=== PATIENT | female | born 1970 | race Caucasian/White ===

== ENCOUNTER 2024-03-13 09:57 | Outpatient (AMB) | payer OTHER, SELFPAY ==
--- NOTE | 2024-03-13 10:07 | MHC.PC.OV ---
Vital Signs 03/13/24 10:09 Height 5 ft 5 in Weight 200 lb 6 oz BMI 33.3 BP 106/78 Blood Pressure Location Rt brachial Position Sitting Pulse 67 Pulse Source Pulse Oximeter Pulse Oximetry (%) 99 Oxygen Delivery Method Room Air Intake Visit Reasons: yael from [facility] Intake Note: New patient visit Rig Welder Required: No Allergies No Known Allergies Allergy (Verified 03/13/24 10:12) Tobacco use date assessed: 03/13/24 Dental Screening Dental Screen Date: 03/13/24 Did you have a dental visit in the last 12 months?: Yes Did you have a dental problem in the last 6 months where you did not have access to dental care?: No Was dental information given to patient?: Patient has dentist HPI HPI Comments History of Present Illness Details This is a 54-year-old female with a past medical history of obesity, hyperlipidemia and urinary frequency presenting to establish care. She transferred from my panel at [facility]. Obesity-she is extremely frustrated. She feels uncomfortable in her own skin. She is always thinking about when her next meal is going to be. She tried implementing a portion controlled diet, low-carbohydrate diet, exercise routine within the past 12 months. She has not lost weight successfully. Her BMI is 33.3. She took Topamax for a time. She lost 15 lb, but she gained it back. She has a history of hyperlipidemia and a family history of cardiovascular disease. Patient tells me she was at a concert 4-6 weeks ago standing when she felt a sudden intense tightness across the left side of her chest. It remained constant so she left the consult. The tightness resolved without intervention after 45 minutes. Patient recalls it was a very crowded area, and she can get claustrophobic so she isn't sure if it was anxiety, but this has never happened to her before. She had no nausea, vomiting, radiation of pain, dizziness or difficulty breathing associated with symptoms. No diaphoresis. Her paternal grandmother at age 43 of cardiovascular disease. Her father has a stent and arrhythmia. Her paternal grandfather also had cardiovascular disease. She had a stress test 5 years ago that was reportedly normal. She denies exertional chest discomfort or tightness and shortness of breath. She is a nonsmoker. She drinks alcohol socially. She was seen by Urogynecology for overactive bladder. She was prescribed Myrbetriq, but she did not take it. Denies incontinence. She has plantar fasciitis in both of her feet that recurred over the summer after she wore sandals. She is using inserts in her sneakers. She still has pain when she gets up in the morning, but after she walks around this resolves. No numbness or tingling in her feet. ROS: Constitutional: No unexplained weight loss, fever, chills or night sweats. Eyes: No vision changes Respiratory: No shortness of breath, cough or sputum production. Cardiovascular: No palpitations or pedal edema. See HPI. Gastrointestinal: No anorexia, nausea, vomiting or diarrhea. No abdominal pain or blood in stool. Neurologic: No headache, dizziness, syncope, numbness, tingling or weakness. Skin: No rash Endocrine: No cold or heat intolerance. No polyuria or polydipsia. Psychiatric: No depression or SI/HI. Physical exam: Constitutional: Alert, in no distress. Head: Normocephalic. Neck: Supple, Full range of motion. No lymphadenopathy. No palpable thyroid masses. Respiratory: Clear to auscultation. Cardiovascular: S1 S2 regular. No murmur. Gastrointestinal: Abdomen soft, non-tender, non-distended. Normal bowel sounds. No palpable masses. Extremities: Warm and well perfused. No clubbing, cyanosis or edema. Psychiatric: Normal mood and affect [facility] Medical History (Updated 03/13/24 @ 11:20 by VERÓNICA Weller) Obesity, class 1 Urinary frequency Bilateral plantar fasciitis Obesity, class 2 Hyperlipidemia Chest tightness Social History Housing: House Patient Tobacco Use Status: Never used Tobacco e-Cigarette/Vaping Use: Never Used Second Hand Smoke Exposure: No service: No Current occupational status: employed Current occupation: Realtor Current occupational exposures/hazards: No Cognitive needs: No Hearing needs: No Vision needs: No Questionnaire PHQ-9 Over the last 2 weeks, how often have you been bothered by any of the following problems? 1. Little interest or pleasure in doing things: not at all 2. Feeling down, depressed, or hopeless: not at all 3. Trouble falling or staying asleep, or sleeping too much: several days 4. Feeling tired or having little energy: not at all 5. Poor appetite or overeating: nearly every day 6. Feeling bad about yourself - or that you are a failure or have let yourself or your family down: not at all 7. Trouble concentrating on things, such as reading the newspaper or watching television: not at all 8. Moving or speaking so slowly that other people could have noticed. Or the opposite - being so fidgety or restless that you have been moving around a lot more than usual: not at all 9. Thoughts that you would be better off or of hurting yourself in some way: not at all Total score: 4 Depression Screening Interpretation: Positive Depression Screening Done: Yes Source: Developed by Drs. Jeremi Buenrostro, Cat Benson, Isma Ballard and colleagues, with an educational ted from [employer]. Thrive Questionnaire I am a: Patient What is your living situation today?: I have a steady place to live Within the past 12 months, did the food you bought not last and you didn't have the money to get more?: Never true Within the past 12 months, did you worry whether your food would run out before you got money to buy more?: Never true Do you have trouble paying for medicines?: No Do you have trouble getting transportation to medical appointments?: No Do you have trouble paying your heating and electricity bill?: No Do you have trouble taking care of your child, family member or friend?: No Do you have trouble with day-to-day activities such as bathing, preparing meals, shopping, managing finances, etc.?: No Are you currently unemployed and looking for a job?: No Are you interested in more education?: I choose not to answer this question Please select the resources that you would like help with: None Currently or been in a relationship where the following occur: No concerns reported THRIVE Score: 0 AUDIT C Alcohol Use Questionnaire (AUDIT-C) 1. How often do you have a drink containing alcohol?: 2-3 times a week 2. How many drinks containing alcohol do you have on a typical day when you are drinking?: 1 or 2 3. How often do you have six or more drinks on one occasion?: Never Total Score: 3 NASH-7 AMB Questionnaire NASH-7 Feeling nervous, anxious, or on edge: 0 = Not at all Not being able to stop or control worryin = Not at all Worrying too much about different things: 0 = Not at all Trouble relaxin = Not at all Being so restless that it is hard to sit still: 0 = Not at all Becoming easily annoyed or irritable: 1 = Several days Feeling afraid as if something awful might happen: 0 = Not at all Total NASH-7 score (0-4 normal; 5-9 mild; 10-14 moderate; 15-21 severe): 1 Source: Developed by Drs. Jeremi Buenrostro, Cat Benson, Isma Ballard and colleagues, with an educational ted from [employer]. Physical exam (Primary Care) Vital Signs: Last Vital Signs Pulse 67 03/13/24 10:09 BP 106/78 03/13/24 10:09 Pulse Ox 99 03/13/24 10:09 Oxygen Delivery Method Room Air 03/13/24 10:09 BMI result Body Mass Index 33.3 Tobacco/Smoking Status: Tobacco use Status Tobacco use date assessed 03/13/24 03/13/24 10:12 Patient Tobacco Use Status Never used Tobacco 03/13/24 10:12 e-Cigarette/Vaping Use Never Used 03/13/24 10:12 PHQ-9: PHQ-9 Score PHQ-9: Total score 4 03/13/24 10:57 Depression Screening Interpretation: Positive Currently or been in a relationship where the following occur: No concerns reported Office Procedures EKG Details: EKG shows normal sinus rhythm and ventricular rate 61 beats per minute. Reviewed by Dr. Hilton. [id number], Complete Coding Level of Care Code Est Pt Level 5 (48396) Complex EM visit Add On G2211 Diagnoses Chest tightness R07.89 Hyperlipidemia E78.5 Bilateral plantar fasciitis M72.2 Obesity, class 1 E66.811 CPT Codes EKG - CPT: [id number]-[id number], Complete ([id number]) Time Spent (min) 58 Comment Direct patient care and completing documentation Assessment & Plan Assessment & Plan (1) Chest tightness: Code(s): R07.89 - Other chest pain Category: Medical Plan: Differential includes CAD, anxiety, GERD, musculoskeletal pain. EKG today nonischemic. Patient describes atypical episode of chest tightness but given risk factors (family history, hyperlipidemia, obesity) we will proceed with echocardiogram and nuclear stress test. Advised patient to call 911 and go to ER if tightness returns. Reviewed signs and symptoms warranting ER evaluation. Check fasting labs. (2) Hyperlipidemia: Code(s): E78.5 - Hyperlipidemia, unspecified Category: Medical Plan: Check fasting lipid profile. (3) Bilateral plantar fasciitis: Code(s): M72.2 - Plantar fascial fibromatosis Category: Medical Plan: Supportive exercises and care reviewed for home. Symptoms have been improving. She will call if they worsen. (4) Obesity, class 1: Code(s): E66.811 - Obesity, class 1 Category: Medical Plan: Check fasting labs and TSH. Continue lifestyle modifications though she has been unable to lose weight successfully. She has tried Topamax. I will see if insurance will cover GLP 1. She denies contraindications to this medication. Titration and side effects were reviewed in detail with her. Referred to weight loss management in the event that it is not covered through primary care since [facility] usually dictates it must come from endocrinology or weight loss case management specialist. Plan Follow up in 8 weeks. Orders: Orders AMB EKG-In Office Today R07.89 - Other chest pain Comprehensive Met. Panel Today E66.812 - Obesity, class 2, E78.5 - Hyperlipidemia, unspecified, M72.2 - Plantar fascial fibromatosis, R07.89 - Other chest pain, R35.0 - Frequency of micturition Lipid Panel Today E66.812 - Obesity, class 2, E78.5 - Hyperlipidemia, unspecified, M72.2 - Plantar fascial fibromatosis, R07.89 - Other chest pain, R35.0 - Frequency of micturition TSH reflex Free T4 Today E66.812 - Obesity, class 2, E78.5 - Hyperlipidemia, unspecified, M72.2 - Plantar fascial fibromatosis, R07.89 - Other chest pain, R35.0 - Frequency of micturition CA echo transthoracic complete Today R07.89 - Other chest pain Complete Blood Count no Diff Today E66.812 - Obesity, class 2, E78.5 - Hyperlipidemia, unspecified, M72.2 - Plantar fascial fibromatosis, R07.89 - Other chest pain, R35.0 - Frequency of micturition Hemoglobin A1c Today E66.812 - Obesity, class 2, E78.5 - Hyperlipidemia, unspecified, M72.2 - Plantar fascial fibromatosis, R07.89 - Other chest pain, R35.0 - Frequency of micturition B Type Natriuretic Peptide Today E11.9 - Type 2 diabetes mellitus without complications, E66.812 - Obesity, class 2, E78.5 - Hyperlipidemia, unspecified, M72.2 - Plantar fascial fibromatosis, R07.89 - Other chest pain, R35.0 - Frequency of micturition CA stress test Today R94.31 - Abnormal electrocardiogram [ECG] [EKG] NM cardiolite stress test Today R07.89 - Other chest pain Referrals Medical Weight Management Referral E66.811 - Obesity, class 1 Medications: New semaglutide (weight loss) (Silverio) administer weeks 1 through 4 of therapy 0.25 mg (0.5 mL) subcut QWEEK 2 mL 0RF
[2024-03-13 10:09] VITALS: BP 106/78; PULSE 67; O2SAT 99; BMI 33.3
== END 2024-03-13 11:48 | disposition home or self-care (01) ==
PROVIDERS: PCP Physician Assistant Medical; Visit Provider Physician Assistant Medical
DX: R07.89 Other chest pain (principal); E78.5 Hyperlipidemia, unspecified; E66.811 Obesity, class 1; Z68.33 Body mass index [BMI] 33.0-33.9, adult; M72.2 Plantar fascial fibromatosis

== ENCOUNTER → 2024-03-13 09:57 | Outpatient (BNVA) | payer OTHER, SELFPAY | PROVIDERS: Visit Provider Physician Assistant Medical | DX: R07.89 Other chest pain (principal); E78.5 Hyperlipidemia, unspecified; M72.2 Plantar fascial fibromatosis; E66.811 Obesity, class 1; Z68.33 Body mass index [BMI] 33.0-33.9, adult | CPT/HCPCS: 93005; 96127 ==

== ENCOUNTER 2024-03-20 07:38 | Outpatient (REF) | payer OTHER, SELFPAY ==
[2024-03-20 10:33] LABS: Hematocrit 43.4 % (37.0-47.0); Hemoglobin 14.1 g/dl (12.0-16.0); Mean Corpuscular HGB Conc 32.5 g/dl (31.0-35.0); Mean Corpuscular Hemoglobin 28.7 pg (27.0-33.0); Mean Corpuscular Volume 88.2 fL (80.0-98.0); Mean Platelet Volume 9.4 fL (9.4-12.3); Platelet Count 394 X10*3/uL (160-400); Red Blood Count 4.92 X10*6/uL (4.20-5.50); Red Cell Distribution Width 13.2 % (11.0-16.0); White Blood Count 6.1 X10*3/uL (4.8-10.8)
[2024-03-20 10:50] LABS: Estimated Average Glucose 111 mg/dL; Hemoglobin A1C 131.8424 umol/L; Hemoglobin A1c % 5.5 % (<6.0); Total Hemoglobin (HGBA1C) 3555.9381 umol/L
[2024-03-20 10:52] LABS: B Type Natriuretic Peptide 15 pg/mL (<100)
[2024-03-20 11:26] LABS: Anion Gap 9 (12-20)
[2024-03-20 11:31] LABS: Alanine Aminotransferase 21 U/L (0-31); Alkaline Phosphatase 81 U/L (39-117); Aspartate Amino Transferase 25 U/L (5-31); Bilirubin Total 0.5 mg/dL (0.0-1.0); Blood Urea Nitrogen 11 mg/dL (9-16); Calcium 9.1 mg/dL (8.4-10.2); Carbon Dioxide 29 mmol/L (22-29); Chloride 104 mmol/L (96-108); Cholesterol 238 mg/dL (<200); Estimated Glomerular Filt Rate > 60; Glucose Random 92 mg/dL (60-115); HDL Cholesterol 66 mg/dL (>40); LDL Cholesterol Calculated 152 mg/dL (<100); Potassium 4.3 mmol/L (3.3-5.1); Sodium 138 mmol/L (135-145); Total Protein 6.9 g/dL (6.5-8.0); Triglycerides 100 mg/dL (<150)
== END 2024-03-20 07:39 | disposition home or self-care (01) ==
LOC: HO.HMGCLDS 07:38
PROVIDERS: PCP Physician Assistant Medical; Visit Provider Physician Assistant Medical
DX: E78.5 Hyperlipidemia, unspecified (principal)
CPT/HCPCS: 36415; 80053; 80061; 83036; 83880; 84443; 85027

== ENCOUNTER → 2024-04-17 07:40 | Outpatient (REF) | payer OTHER, SELFPAY ==
--- NOTE | 2024-04-17 07:43 | CA_ITS ---
Transthoracic Echocardiogram Patient (Last, First, Middle): Maura Rae J Gender: Female Date of : 1970 Age: 54 Procedure Date: 04/17/2024 Procedure Type: Transthoracic Echocardiogram Location: OP Height: 165.1 cm Weight: 90.72 kg BSA: 1.98 m2 Heart Rate: bpm BP: 130 / 86 mmHg Mig Welder: AMRITA Referring MD: Kajal SANCHES Symptoms: R07.89 - Other chest pain Study Quality: Adequate with contrast ECG Rhythm: Sinus Conclusions: - The left ventricular systolic function is normal. The visually estimated ejection fraction is between 55-60%. - No obvious valvular pathology seen on this study. Findings Procedure Information Contrast agent, definity, is being given per protocol without apparent complications. Left Ventricle Normal left ventricular cavity size. There is normal left ventricular wall thickness. The left ventricular systolic function is normal. The visually estimated ejection fraction is between 55-60%. There is no evidence of regional wall motion abnormalities. Diastolic function is normal for age. Right Ventricle Normal right ventricular cavity size. There is low normal right ventricular systolic function. Atria Both atria are normal in size. Aortic Valve There is a normal trileaflet aortic valve. There is no aortic valve stenosis. There is no aortic valve regurgitation. Mitral Valve The mitral valve appears normal. There is trace mitral valve regurgitation. There is no mitral valve stenosis. Pulmonic Valve The pulmonic valve is likely normal. Tricuspid Valve There is trace tricuspid valve regurgitation. Tricuspid regurgitation envelope is inadequate for calculation of right ventricular systolic pressure. Great Vessels The asc aorta is normal in size. Venous The inferior vena cava is normal in size and collapses greater than 50% with inspiration. Pericardium/Pleural There is no evidence of pericardial effusion. Prior Study Comparison No prior study available for comparison. Recommendations, Care & Conclusions No obvious valvular pathology seen on this study. Measurements 2D Linear Measurements IVSd: 0.95 0.6-0.9/0.6-1.0 cm LVIDd: 3.92 3.9-5.3/4.2-5.9 cm LVIDd Index: 1.98 2.4-3.2/2.2-3.1 cm/m2 LVIDs: 2.60 2.0-3.6 cm LVPWd: 0.97 0.7-1.1 cm LA Diam: 2.90 2.7-3.8/3.0-4.0 cm LAIDs Index: 1.46 1.5-2.3 cm/m2 LV Mass: 144.29 67-162/88-224 g LV Mass Index: 72.87 43-95/49-115 g/m2 LVOT Diam: 2.10 3.0+(-)1.3 cm 2D Systolic Function EF 4C: 62.90 >55% EF 2C: 57.50 >55% EF BiP: 59.60 >55% Mitral Valve MV Pk E: 0.68 MV PK A: 0.54 MV Decel Time: 250.00 E/A: 1.30 E'Lateral: 11.20 E'Medial: 8.81 E/E' Med: 7.70 E/E' Lat: 6.00 PHT: 73.00 MVA PHT: 3.01 Decel [place]: 2.71 Aortic Valve AoV Pk Zhen: 1.08 AoV Mn Zhen: 0.78 AoV VTI: 0.27 AoV Pk Grad: 5.00 Aov Mn Grad: 3.00 YAIMA Cont.VTI: 2.43 LVOT LVOT Pk Zhen: 0.88 LVOT Mn Zhen: 0.56 LVOT VTI: 0.19 LVOT Pk Grad: 3.00 LVOT Mn Grad: 1.00 LVOT Diam: 2.10 LVOT Area: 3.46 Diastolic Function MV Pk E: 0.68 MV Pk A: 0.54 E/A: 1.30 E'Medial: 8.81 E/E' Med: 7.70 E' Laterial: 11.20 E/E' Lat: 6.00 Right Ventricle TAPSE (mm): 20.00 TVS' Zhen: 9.79 Tricuspid Valve RA Press: 3.00 Great Vessels Aorta Sinus of Valsalva: 2.73 2.0-3.[address] [place]: 1.93 1.7-3.4 cm Ao Asc: 3.10 2.1-3.4 cm Updated in Other Vendor System with Status of Final [place] MD electronically signed on 04/17/2024 10:43:24 AM with status of Final
== END ==
LOC: HO.CARD 07:40
PROVIDERS: PCP Physician Assistant Medical; Visit Provider Physician Assistant Medical
DX: R07.89 Other chest pain (principal)
CPT/HCPCS: 93306; Q9957

== ENCOUNTER → 2024-04-17 07:43 | Outpatient (BNV) | payer OTHER, SELFPAY | PROVIDERS: PCP Physician Assistant Medical; Visit Provider Internal Medicine | DX: R07.9 Chest pain, unspecified (principal) | CPT/HCPCS: 93306 ==

== ENCOUNTER → 2024-05-09 07:41 | Outpatient (BNVA) | payer OTHER, SELFPAY | PROVIDERS: PCP Physician Assistant Medical; Visit Provider Physician Assistant Surgical ==

== ENCOUNTER 2024-05-22 15:12 | Outpatient (AMB) | payer OTHER, SELFPAY ==
[2024-05-22 15:44] VITALS: BP 124/80; PULSE 76; O2SAT 98; BMI 32.3
--- NOTE | 2024-05-22 15:44 | A.OFFPC_ITS ---
Vital Signs 05/22/24 15:44 Height 5 ft 6 in Weight 200 lb BMI 32.3 BP 124/80 Blood Pressure Location Rt brachial Position Sitting Pulse 76 Pulse Source Pulse Oximeter Pulse Oximetry (%) 98 Oxygen Delivery Method Room Air Intake Visit Reasons: FU MEDS Allergies No Known Allergies Allergy (Verified 05/22/24 15:47) Tobacco use date assessed: 05/22/24 Dental Screening Dental Screen Date: 05/22/24 Did you have a dental visit in the last 12 months?: Yes Did you have a dental problem in the last 6 months where you did not have access to dental care?: No Was dental information given to patient?: Patient has dentist HPI HPI Comments History of Present Illness Details This is a 54-year-old female with a past medical history of obesity and hyperlipidemia presenting for follow up. Obesity-we tried to prescribed GLP 1, but her insurance did not cover it. She saw the weight managed program at [facility], and prior authorization is processing. She has paid out of pocket for the 1st month because she was so frustrated and wanted to start the medication. She is thinking about requesting change to Zepbound on the advice of her friend who is a pharmacist. They also told her about a coupon where she can get this for 400 dollars a month. She feels uncomfortable in her own skin. She is tearful about this. She tried taking Topamax and lost 15 lb but ended up gaining it back. She has a history of hyperlipidemia and a family history of cardiovascular disease. Documented at last visit: Patient tells me she was at a concert 4-6 weeks ago standing when she felt a sudden intense tightness across the left side of her chest. It remained constant so she left the consult. The tightness resolved without intervention after 45 minutes. Patient recalls it was a very crowded area, and she can get claustrophobic so she isn't sure if it was anxiety, but this has never happened to her before. She had no nausea, vomiting, radiation of pain, dizziness or difficulty breathing associated with symptoms. No diaphoresis. Her paternal grandmother at age 43 of cardiovascular disease. Her father has a stent and arrhythmia. Her paternal grandfather also had cardiovascular disease. She had a stress test 5 years ago that was reportedly normal. She denies exertional chest discomfort or tightness and shortness of breath. She is a nonsmoker. She drinks alcohol socially. Her EKG was nonischemic. She had an echocardiogram on 04/18/2023 which showed no clinically significant valve disease or evidence of structural heart disease. Ejection fraction was normal. She has a nuclear stress test scheduled in June. She has not had any further episodes of chest discomfort. CBC, BNP, TSH, hemoglobin A1c, CMP were normal. In 03/01/2024 she found a tick on her upper back that was engorged. Her partner removed it, and said it was not a deer tick. Patient has no joint swelling, increased fatigue, fevers, chills or night sweats. She wants to be tested for Lyme disease to be cautious. ROS: Constitutional: No unexplained weight loss, fever, chills or night sweats. Eyes: No vision changes Respiratory: No shortness of breath, cough or sputum production. Cardiovascular: No chest pain, palpitations or pedal edema. Gastrointestinal: No anorexia, nausea, vomiting or diarrhea. No abdominal pain or blood in stool. Neurologic: No headache, dizziness, syncope, numbness, tingling or weakness. Skin: No rash Endocrine: No cold or heat intolerance. No polyuria or polydipsia. Psychiatric: Denies depression and SI/HI. Endorses emotional distress about being overweight. Physical exam: Constitutional: Alert, in no distress. Head: Normocephalic. Neck: Supple, Full range of motion. No lymphadenopathy. No palpable thyroid masses. Respiratory: Clear to auscultation. Cardiovascular: S1 S2 regular. No murmur. Gastrointestinal: Abdomen soft, non-tender, non-distended. Normal bowel sounds. No palpable masses. Extremities: Warm and well perfused. No clubbing, cyanosis or edema. Psychiatric: Cooperative, tearful and distressed at times speaking about her weight [facility] Medical History Hypertension Obesity, class 1 Urinary frequency Bilateral plantar fasciitis Obesity, class 2 Hyperlipidemia Chest tightness Surgical History H/O wisdom tooth extraction Family History Mother Family history of CLL (chronic lymphoid leukemia) Social History Housing: House Alcohol intake: current Comment: socially Patient Tobacco Use Status: Never used Tobacco e-Cigarette/Vaping Use: Never Used Second Hand Smoke Exposure: No service: No Current occupational status: employed Current occupation: Realtor Current occupational exposures/hazards: No Cognitive needs: No Hearing needs: No Vision needs: No Questionnaire PHQ-9 Over the last 2 weeks, how often have you been bothered by any of the following problems? 1. Little interest or pleasure in doing things: not at all 2. Feeling down, depressed, or hopeless: not at all 3. Trouble falling or staying asleep, or sleeping too much: not at all 4. Feeling tired or having little energy: not at all 5. Poor appetite or overeating: several days 6. Feeling bad about yourself - or that you are a failure or have let yourself or your family down: not at all 7. Trouble concentrating on things, such as reading the newspaper or watching television: not at all 8. Moving or speaking so slowly that other people could have noticed. Or the opposite - being so fidgety or restless that you have been moving around a lot m ore than usual: not at all 9. Thoughts that you would be better off or of hurting yourself in some way: not at all Total score: 1 Source: Developed by Drs. Jeremi Buenrostro, Cat Benson, Isma Ballard and colleagues, with an educational ted from [employer]. Thrive Questionnaire Date Thrive assessed: 05/11/24 Within the past 12 months, did the food you bought not last and you didn't have the money to get more?: Never true Within the past 12 months, did you worry whether your food would run out before you got money to buy more?: Never true Do you have trouble paying for medicines?: No Do you have trouble getting transportation to medical appointments?: No Do you have trouble paying your heating and electricity bill?: No Do you have trouble taking care of your child, family member or friend?: No Do you have trouble with day-to-day activities such as bathing, preparing meals, shopping, managing finances, etc.?: No Are you currently unemployed and looking for a job?: No Are you interested in more education?: No Please select the resources that you would like help with: None Currently or been in a relationship where the following occur: No concerns reported THRIVE Score: 0 NASH-7 AMB Questionnaire NASH-7 Feeling nervous, anxious, or on edge: 1 = Several days Not being able to stop or control worryin = Several days Becoming easily annoyed or irritable: 1 = Several days Source: Developed by Drs. Jeremi Buenrostro, Cat Benson, Isma Ballard and colleagues, with an educational ted from [employer]. Physical exam (Primary Care) Vital Signs: Last Vital Signs Pulse 76 05/22/24 15:44 BP 124/80 05/22/24 15:44 Pulse Ox 98 05/22/24 15:44 Oxygen Delivery Method Room Air 05/22/24 15:44 BMI result Body Mass Index 32.3 Tobacco/Smoking Status: Tobacco use Status Tobacco use date assessed 05/22/24 05/22/24 15:48 Patient Tobacco Use Status Never used Tobacco 05/22/24 15:48 e-Cigarette/Vaping Use Never Used 05/22/24 15:48 PHQ-9: PHQ-9 Score PHQ-9: Total score 1 05/22/24 16:08 Thrive Assessment: Date of Thrive Assessment Date Thrive assessed 05/11/24 05/22/24 15:48 Currently or been in a relationship where the following occur: No concerns reported Coding Level of Care Code Est Pt Level 4 (53748) Complex EM visit Add On G2211 Diagnoses Chest tightness R07.89 Obesity, class 2 E66.812 Tick bite W57.XXXA Assessment & Plan Assessment & Plan (1) Chest tightness: Code(s): R07.89 - Other chest pain Category: Medical Plan: She had 1 episode and no recurrent symptoms. Differential includes CAD, anxiety, GERD, musculoskeletal pain. EKG and echocardiogram and labs reassuring. Proceed with nuclear stress test out of an abundance of caution. Warning signs warranting ER evaluation reviewed. (2) Obesity, class 2: Code(s): E66.812 - Obesity, class 2 Category: Medical Plan: Continue lifestyle modifications. She started Wegovy. Follow up with weight management regarding question about Zepbound. Patient is emotionally distressed by her weight, and we spoke about this in depth today. I recommended counseling. She will consider this and let me know if she wants to proceed. (3) Tick bite: Code(s): W57.XXXA - Bitten or stung by nonvenomous insect and other nonvenomous arthropods, initial encounter Plan: We will check Lyme serology out of an abundance of caution. Plan Follow up in 2 months. Orders: Orders Lyme IgG/IgM w/reflex to WB 05/22/24 W57.XXXA - Bitten or stung by nonvenomous insect and other nonvenomous arthropods, initial encounter
== END 2024-05-22 16:20 | disposition home or self-care (01) ==
PROVIDERS: PCP Physician Assistant Medical; Visit Provider Physician Assistant Medical
DX: R07.89 Other chest pain (principal); E66.812 Obesity, class 2; W57.XXXA Bitten or stung by nonvenomous insect and other nonvenomous arthropods, initial encounter; Z68.32 Body mass index [BMI] 32.0-32.9, adult

== ENCOUNTER → 2024-05-22 15:12 | Outpatient (BNVA) | payer OTHER, SELFPAY | PROVIDERS: PCP Physician Assistant Medical; Visit Provider Physician Assistant Medical ==

== ENCOUNTER 2024-06-05 08:26 | Outpatient (REF) | payer OTHER, SELFPAY ==
[2024-06-06 13:58] LABS: Lyme Abs Screen <0.90 index
== END 2024-06-05 08:27 | disposition home or self-care (01) ==
LOC: HO.WFDLDS 08:26
PROVIDERS: Visit Provider Physician Assistant Medical
DX: T14.8XXA Other injury of unspecified body region, initial encounter (principal); W57.XXXA Bitten or stung by nonvenomous insect and other nonvenomous arthropods, initial encounter; Y93.9 Activity, unspecified; Y92.9 Unspecified place or not applicable; Y99.9 Unspecified external cause status
CPT/HCPCS: 36415; 86617; 86618

== ENCOUNTER → 2024-07-03 07:38 | Outpatient (REF) | payer OTHER, SELFPAY | LOC: HO.CARD 07:38 | PROVIDERS: PCP Physician Assistant Medical; Visit Provider Physician Assistant Medical | DX: Z13.89 Encounter for screening for other disorder (principal) ==

== ENCOUNTER → 2024-07-03 07:40 | Outpatient (REF) | payer OTHER, SELFPAY ==
--- NOTE | 2024-07-03 07:52 | CA_ITS ---
Acquisition Time: 2024-07-03 08:06:46 Total Exercise Time: 00:06:32 Test Indications: CP Medications: SEE H&P Protocol: RICHARD Max HR: 148 BPM 89% of Pred: 165 BPM Max BP: 140/50 mmHG Max Work Load: 7.8 METS Exercise Stress Test with exercise 6 mins 32 secs of Richard Protocol, achieving 88% MPHR, with rerpots of mild SOB, no chest pain, with isolated PACs, with normotensive response to exercise. Without EKG chnages meeting criteria for ischemia. In recovery, breathing returned to baseline. Test reviewed with Dr. Herr. Referred By: Kajal Aceves Electronically Signed By: Laci Bernal
== END ==
LOC: HO.CARD 07:40
PROVIDERS: PCP Physician Assistant Medical; Visit Provider Physician Assistant Medical
DX: R07.9 Chest pain, unspecified (principal); R94.31 Abnormal electrocardiogram [ECG] [EKG]
CPT/HCPCS: 93017

== ENCOUNTER → 2024-07-03 07:52 | Outpatient (BNV) | payer OTHER, SELFPAY | PROVIDERS: PCP Physician Assistant Medical | DX: R06.02 Shortness of breath (principal); I49.1 Atrial premature depolarization | CPT/HCPCS: 93016; 93018 ==

== ENCOUNTER 2024-07-27 08:44 | Outpatient (AMB) | payer OTHER, SELFPAY ==
--- NOTE | 2024-07-27 08:54 | MHC.PC.OV ---
Vital Signs 07/27/24 09:08 Height 5 ft 6 in Weight 178 lb 2 oz BMI 28.7 BP 108/70 Blood Pressure Location Lt brachial Position Sitting Pulse 73 Pulse Source Pulse Oximeter Temp 98.3 F Temp Source Temporal Artery Scan Pulse Oximetry (%) 96 Oxygen Delivery Method Room Air Intake Visit Reasons: follow up Intake Note: Maura presents in the office today for a follow up to starting Wegovy. Allergies No Known Allergies Allergy (Verified 07/27/24 08:57) Tobacco use date assessed: 07/27/24 Dental Screening Dental Screen Date: 07/27/24 Did you have a dental visit in the last 12 months?: Yes Did you have a dental problem in the last 6 months where you did not have access to dental care?: No Was dental information given to patient?: Patient has dentist HPI HPI Comments History of Present Illness Details This is a 54-year-old female with a past medical history of obesity and hyperlipidemia presenting for follow up. She has a history of obesity and hyperlipidemia. She is doing very well on Zepbound. She was on Wegovy for 1 month and then switched to this medication. She is on 2.5 mg, and she would like to increase the dose. She has lost 22 lb since starting the medication. She has occasional constipation, but it is tolerable. She is not having fast food. She is not drinking alcohol. She stopped having sugary foods. She is paying [id number], but she says it is worth it. She was seen at the [facility] weight loss management program as well, but the medication was still not covered by insurance. She feels more focused at work. She is much happier. We previously discussed an episode of left-sided chest tightness when she has been at a concert. Echocardiogram and stress test were unremarkable, and she has no recurrent episodes. It had resolved without intervention, and patient recalled it was in a very crowded area, and she can get claustrophobic so she thinks it may have been related to anxiety. Mammogram-scheduled [facility] exam-scheduled Cologuard done within the past 3 years. Patient declines colonoscopy citing that she knows to people who from complications of colonoscopy. ROS: Constitutional: No unexplained weight loss, fever, chills or night sweats. Eyes: No vision changes Respiratory: No shortness of breath, cough or sputum production. Cardiovascular: No chest pain, palpitations or pedal edema. Gastrointestinal: No anorexia, nausea, vomiting or diarrhea. No abdominal pain or blood in stool. Neurologic: No headache, dizziness, syncope, numbness, tingling or weakness. Skin: No rash Endocrine: No cold or heat intolerance. No polyuria or polydipsia. Psychiatric: Denies anxiety or depression. Physical exam: Constitutional: Alert, in no distress. Head: Normocephalic. Neck: Supple, Full range of motion. No lymphadenopathy. No palpable thyroid masses. Respiratory: Clear to auscultation. Cardiovascular: S1 S2 regular. No murmur. Psychiatric: Cooperative [facility] Medical History Hypertension Obesity, class 1 Urinary frequency Bilateral plantar fasciitis Obesity, class 2 Hyperlipidemia Chest tightness Surgical History H/O wisdom tooth extraction Family History (Updated 07/27/24 @ 09:03 by Missy Cruz MA) Mother Family history of CLL (chronic lymphoid leukemia) Social History (Updated 07/27/24 @ 09:04 by Missy Cruz MA) Housing: House Alcohol intake: current Comment: socially Patient Tobacco Use Status: Never used Tobacco e-Cigarette/Vaping Use: Never Used Second Hand Smoke Exposure: No Substance Use Type: Marijuana service: No Current occupational status: employed Current occupation: Realtor Current occupational exposures/hazards: No Cognitive needs: No Hearing needs: No Vision needs: No Questionnaire PHQ-9 Over the last 2 weeks, how often have you been bothered by any of the following problems? 1. Little interest or pleasure in doing things: not at all 2. Feeling down, depressed, or hopeless: not at all 3. Trouble falling or staying asleep, or sleeping too much: several days 4. Feeling tired or having little energy: not at all 5. Poor appetite or overeating: not at all 6. Feeling bad about yourself - or that you are a failure or have let yourself or your family down: not at all 7. Trouble concentrating on things, such as reading the newspaper or watching television: not at all 8. Moving or speaking so slowly that other people could have noticed. Or the opposite - being so fidgety or restless that you have been moving around a lot more than usual: not at all 9. Thoughts that you would be better off or of hurting yourself in some way: not at all Total score: 1 Depression Screening Interpretation: Negative Depression Screening Done: Yes 89299 - PHQ-9 Billing: Patient declined-do not bill Source: Developed by Drs. Jeremi Buenrostro, Cat Benson, Isma Ballard and colleagues, with an educational ted from [employer]. Thrive Questionnaire Date Thrive assessed: 07/27/24 I am a: Patient What is your living situation today?: I have a steady place to live Within the past 12 months, did the food you bought not last and you didn't have the money to get more?: Never true Within the past 12 months, did you worry whether your food would run out before you got money to buy more?: Never true Do you have trouble paying for medicines?: No Do you have trouble getting transportation to medical appointments?: No Do you have trouble paying your heating and electricity bill?: No Do you have trouble taking care of your child, family member or friend?: No Do you have trouble with day-to-day activities such as bathing, preparing meals, shopping, managing finances, etc.?: No Are you currently unemployed and looking for a job?: No Are you interested in more education?: No Please select the resources that you would like help with: None Currently or been in a relationship where the following occur: No concerns reported THRIVE Score: 0 AUDIT C Alcohol Use Questionnaire (AUDIT-C) 1. How often do you have a drink containing alcohol?: 2-4 times a month 2. How many drinks containing alcohol do you have on a typical day when you are drinking?: 1 or 2 3. How often do you have six or more drinks on one occasion?: Never Total Score: 2 Score Reviewed/Action Taken: No NASH-7 AMB Questionnaire NASH-7 Date NASH - 7 assessed: 07/27/24 Feeling nervous, anxious, or on edge: 0 = Not at all Not being able to stop or control worryin = Several days Worrying too much about different things: 0 = Not at all Trouble relaxin = Not at all Being so restless that it is hard to sit still: 0 = Not at all Becoming easily annoyed or irritable: 1 = Several days Feeling afraid as if something awful might happen: 0 = Not at all Total NASH-7 score (0-4 normal; 5-9 mild; 10-14 moderate; 15-21 severe): 2 Source: Developed by Drs. Jeremi Buenrostro, Cat Benson, Isma Ballard and colleagues, with an educational ted from [employer]. NASH-7 Assessment Billing NASH-7 Assessment Tool: NASH-7 Assessment 21812 Physical exam (Primary Care) Vital Signs: Last Vital Signs Temp 98.3 F 07/27/24 09:08 Pulse 73 07/27/24 09:08 BP 108/70 07/27/24 09:08 Pulse Ox 96 07/27/24 09:08 Oxygen Delivery Method Room Air 07/27/24 09:08 BMI result Body Mass Index 28.7 Tobacco/Smoking Status: Tobacco use Status Tobacco use date assessed 07/27/24 07/27/24 09:11 Patient Tobacco Use Status Never used Tobacco 07/27/24 09:04 e-Cigarette/Vaping Use Never Used 07/27/24 09:04 PHQ-9: PHQ-9 Score PHQ-9: Total score 1 07/27/24 09:11 Depression Screening Interpretation: Negative Thrive Assessment: Date of Thrive Assessment Date Thrive assessed 07/27/24 07/27/24 09:11 Currently or been in a relationship where the following occur: No concerns reported Coding Level of Care Code Est Pt Level 4 (01401) Complex EM visit Add On G2211 Diagnoses Pure hypercholesterolemia E78.00 Hyperlipidemia type: pure hypercholesterolemia Obesity, class 1 E66.811 Chest tightness R07.89 Additional Codes NASH-7 Assessment Billing - NASH-7 Assessment Tool: NASH-7 Assessment 08799 ([id number]) Assessment & Plan Assessment & Plan (1) Hyperlipidemia: Code(s): E78.5 - Hyperlipidemia, unspecified Category: Medical Qualifiers: Hyperlipidemia type: pure hypercholesterolemia Qualified Code(s): E78.00 - Pure hypercholesterolemia, unspecified Plan: Recommended Mediterranean diet. Congratulated on weight loss. Avoid smoking. Regular exercise recommended. Recheck lipid profile prior to next appointment. (2) Obesity, class 1: Code(s): E66.811 - Obesity, class 1 Category: Medical Plan: Congratulated on weight loss. Continue zepbound and increase to 5 mg weekly. Continue avoidance of sugary foods and alcohol. Continue low-carbohydrate diet. Exercise recommended regularly. (3) Chest tightness: Code(s): R07.89 - Other chest pain Category: Medical Plan: No further episodes. Cardiac workup negative. This may have been due to anxiety. Warning signs warranting ER evaluation reviewed. Monitor for recurrent symptoms. Plan Follow up in 3 months for a medication check. Orders: Orders Lipid Panel Today E78.5 - Hyperlipidemia, unspecified Medications: New tirzepatide (weight loss) (Zepbound) 5 mg (0.5 mL) subcut QWEEK 2 mL 0RF Discontinued tirzepatide (weight loss) (Zepbound) Discontinued Reason: Doctor's Order 2.5 mg (0.5 mL) subcut QWEEK 2 mL 0RF
[2024-07-27 09:08] VITALS: BP 108/70; PULSE 73; TEMP 36.8; O2SAT 96; BMI 28.7
== END 2024-07-27 09:33 | disposition home or self-care (01) ==
LOC: HO.HMCFM 08:45
PROVIDERS: PCP Physician Assistant Medical; Visit Provider Physician Assistant Medical
DX: E78.00 Pure hypercholesterolemia, unspecified (principal); E66.811 Obesity, class 1; R07.89 Other chest pain; Z68.28 Body mass index [BMI] 28.0-28.9, adult

== ENCOUNTER → 2024-07-27 08:44 | Outpatient (BNVA) | payer OTHER, SELFPAY | PROVIDERS: PCP Physician Assistant Medical; Visit Provider Physician Assistant Medical | DX: E78.00 Pure hypercholesterolemia, unspecified (principal); E66.811 Obesity, class 1; R07.89 Other chest pain; Z79.899 Other long term (current) drug therapy | CPT/HCPCS: 96127 ==

== ENCOUNTER 2024-09-11 07:46 | Outpatient (REF) | payer OTHER, SELFPAY ==
[2024-09-11 11:53] LABS: Cholesterol 196 mg/dL (<200); HDL Cholesterol 54 mg/dL (>40); LDL Cholesterol Calculated 128 mg/dL (<100); Triglycerides 72 mg/dL (<150)
== END 2024-09-11 07:47 | disposition home or self-care (01) ==
LOC: HO.WFDLDS 07:46
PROVIDERS: Visit Provider Physician Assistant Medical
DX: E78.5 Hyperlipidemia, unspecified (principal)
CPT/HCPCS: 36415; 80061

== ENCOUNTER 2024-09-14 11:01 | Outpatient (AMB) | payer OTHER, SELFPAY ==
--- NOTE | 2024-09-14 11:14 | A.OFFPC_ITS ---
Vital Signs 09/14/24 11:23 Height 5 ft 6 in Weight 166 lb BMI 26.8 BP 108/62 Blood Pressure Location Lt brachial Position Sitting Pulse 75 Pulse Source Pulse Oximeter Temp 98.4 F Temp Source Temporal Artery Scan Pulse Oximetry (%) 97 Oxygen Delivery Method Room Air Intake Visit Reasons: medication review Intake Note: Maura presents in the office today for a medication follow up. Allergies tirzepatide [From Zepbound] Allergy (Intermediate, Verified 09/14/24 11:18) Rash Tobacco use date assessed: 09/14/24 Dental Screening Dental Screen Date: 09/14/24 Did you have a dental visit in the last 12 months?: Yes Did you have a dental problem in the last 6 months where you did not have access to dental care?: No Was dental information given to patient?: Patient has dentist HPI HPI Comments History of Present Illness Details This is a 54-year-old female with a past medical history of obesity, hyperlipidemia and hypertension presenting to discuss weight loss medication. She was paying for tirzepatide [id number] and increased from 2.5-5 mg weekly and developed 2 days of severe abdominal pain and a full-body red, raised, pruritic rash. She was instructed to discontinue the medication. The reaction subsided. She is upset because she felt better on this medication than she had in years, and she lost weight. She would like to restart weight loss medication. She gained 4 lb back this week. The ?food noise? is back. She is maintaining a lot of the healthy choices she was making and exercising. She has a history of high blood pressure, but she is not on medications for it, and her blood pressure today in at her visit in July is normal. ROS: Constitutional: No unexplained weight loss, fever, chills or night sweats. Respiratory: No shortness of breath, cough or sputum production. Cardiovascular: No chest pain, chest pressure or chest discomfort. No palpitations or pedal edema. Physical exam: Constitutional: Alert, in no distress. Respiratory: Clear to auscultation. Cardiovascular: S1 S2 regular. No murmurs. Psychiatric: Normal mood and affect [facility] Medical History (Updated 09/14/24 @ 11:51 by VERÓNICA Weller) Drug reaction Hypertension Obesity, class 1 Urinary frequency Bilateral plantar fasciitis Obesity, class 2 Hyperlipidemia Chest tightness Surgical History H/O wisdom tooth extraction Family History Mother Family history of CLL (chronic lymphoid leukemia) Social History (Updated 09/14/24 @ 11:22 by Missy Cruz MA) Housing: House Alcohol intake: current Comment: socially Patient Tobacco Use Status: Never used Tobacco e-Cigarette/Vaping Use: Never Used Second Hand Smoke Exposure: No Substance Use Type: Marijuana service: No Current occupational status: employed Current occupation: Realtor Current occupational exposures/hazards: No Cognitive needs: No Hearing needs: No Vision needs: No Questionnaire Thrive Questionnaire Date Thrive assessed: 07/27/24 I am a: Patient What is your living situation today?: I have a steady place to live Within the past 12 months, did the food you bought not last and you didn't have the money to get more?: Never true Within the past 12 months, did you worry whether your food would run out before you got money to buy more?: Never true Do you have trouble paying for medicines?: No Do you have trouble getting transportation to medical appointments?: No Do you have trouble paying your heating and electricity bill?: No Do you have trouble taking care of your child, family member or friend?: No Do you have trouble with day-to-day activities such as bathing, preparing meals, shopping, managing finances, etc.?: No Are you currently unemployed and looking for a job?: No Are you interested in more education?: No Please select the resources that you would like help with: None Currently or been in a relationship where the following occur: No concerns reported THRIVE Score: 0 NASH-7 AMB Questionnaire NASH-7 Date NASH - 7 assessed: 07/27/24 Source: Developed by Drs. Jeremi Buenrostro, Cat Benson, Isma Ballard and colleagues, with an educational ted from [employer]. Physical exam (Primary Care) Vital Signs: Last Vital Signs Temp 98.4 F 09/14/24 11:23 Pulse 75 09/14/24 11:23 BP 108/62 09/14/24 11:23 Pulse Ox 97 09/14/24 11:23 Oxygen Delivery Method Room Air 09/14/24 11:23 BMI result Body Mass Index 26.8 Tobacco/Smoking Status: Tobacco use Status Tobacco use date assessed 09/14/24 09/14/24 11:28 Patient Tobacco Use Status Never used Tobacco 09/14/24 11:22 e-Cigarette/Vaping Use Never Used 09/14/24 11:22 Thrive Assessment: Date of Thrive Assessment Date Thrive assessed 07/27/24 09/14/24 11:16 Currently or been in a relationship where the following occur: No concerns reported Coding Level of Care Code Est Pt Level 4 (39960) Complex EM visit Add On G2211 Diagnoses Obesity, class 1 E66.811 Drug reaction T50.905A Assessment & Plan Assessment & Plan (1) Obesity, class 1: Code(s): E66.811 - Obesity, class 1 Category: Medical (2) Drug reaction: Code(s): T50.905A - Adverse effect of unspecified drugs, medicaments and biological substances, initial encounter Category: Medical Plan Remain off GLP 1. This has been difficult for her since she felt better on this medicine, and she lost weight. She is interested in allergy referral due to the drug reaction. She has pictures of the rash, and it is impressive. Referral placed. She has tried topiramate in the past. Blood pressure is normal off meds. She has no history of heart disease. We discussed other options, and she will proceed with phentermine. Start with 15 mg a day. Side effects and administration reviewed. Follow up in 2-3 weeks for a med check. Orders: Referrals Allergy & Immunology Referral T50.905A - Adverse effect of unspecified drugs, medicaments and biological substances, initial encounter Medications: New phentermine Administer before breakfast or 1 to 2 hours after breakfast 15 mg PO QAM 30 caps 0RF
[2024-09-14 11:23] VITALS: BP 108/62; PULSE 75; TEMP 36.9; O2SAT 97; BMI 26.8
== END 2024-09-14 11:56 | disposition home or self-care (01) ==
LOC: HO.HMCFM 11:01
PROVIDERS: PCP Physician Assistant Medical; Visit Provider Physician Assistant Medical
DX: E66.811 Obesity, class 1 (principal); T50.905A Adverse effect of unspecified drugs, medicaments and biological substances, initial encounter; Z68.26 Body mass index [BMI] 26.0-26.9, adult

== ENCOUNTER → 2024-09-14 11:01 | Outpatient (BNVA) | payer OTHER, SELFPAY | PROVIDERS: PCP Physician Assistant Medical; Visit Provider Physician Assistant Medical ==

== ENCOUNTER 2024-10-05 09:44 | Outpatient (AMB) | payer OTHER, SELFPAY ==
--- NOTE | 2024-10-05 09:51 | A.OFFPC_ITS ---
Vital Signs 10/05/24 09:57 Height 5 ft 6 in Weight 161 lb 4 oz BMI 26.0 BP 108/72 Blood Pressure Location Lt brachial Position Sitting Pulse 69 Pulse Source Pulse Oximeter Temp 98.2 F Temp Source Temporal Artery Scan Pulse Oximetry (%) 96 Oxygen Delivery Method Room Air Intake Visit Reasons: med check Intake Note: Maura presents in the office today for a medication check in. Allergies tirzepatide (From Zepbound) Allergy (Intermediate, Verified 10/05/24 09:53) Rash Tobacco use date assessed: 10/05/24 Dental Screening Dental Screen Date: 10/05/24 Did you have a dental visit in the last 12 months?: Yes Did you have a dental problem in the last 6 months where you did not have access to dental care?: No Was dental information given to patient?: Patient has dentist HPI HPI Comments History of Present Illness Details This is a 54-year-old female who presents for a medication check. She started phentermine 15 mg a month ago. She denies side effects. She is very motivated to lose weight, and she is exercising and following a healthy diet. Previous allergic reaction to GLP 1. She has lost 5 lb since starting the medicine. She does notice the effect is less this week than prior weeks. ROS: Constitutional: No unexplained weight loss, fever, chills, fatigue or night sweats. Respiratory: No shortness of breath Cardiovascular: No chest pain, chest pressure or chest discomfort. No palpitations or pedal edema. Physical exam: Constitutional: Alert, in no distress. Neck: Supple, Full range of motion. No lymphadenopathy. No palpable thyroid masses. Respiratory: Clear to auscultation. Cardiovascular: S1 S2 regular. No murmurs Extremities: Warm and well perfused. No clubbing, cyanosis or edema. Psychiatric: Normal mood and affect [facility] Medical History (Updated 09/14/24 @ 11:51 by VERÓNICA Weller) Drug reaction Hypertension Obesity, class 1 Urinary frequency Bilateral plantar fasciitis Obesity, class 2 Hyperlipidemia Chest tightness Surgical History H/O wisdom tooth extraction Family History Mother Family history of CLL (chronic lymphoid leukemia) Social History (Updated 10/05/24 @ 09:56 by Missy Cruz MA) Housing: House Alcohol intake: current Comment: socially Patient Tobacco Use Status: Never used Tobacco e-Cigarette/Vaping Use: Never Used Second Hand Smoke Exposure: No Substance Use Type: Marijuana service: No Current occupational status: employed Current occupation: Realtor Current occupational exposures/hazards: No Cognitive needs: No Hearing needs: No Vision needs: No Questionnaire Thrive Questionnaire Date Thrive assessed: 05/11/24 I am a: Patient What is your living situation today?: I have a steady place to live Within the past 12 months, did the food you bought not last and you didn't have the money to get more?: Never true Within the past 12 months, did you worry whether your food would run out before you got money to buy more?: Never true Do you have trouble paying for medicines?: No Do you have trouble getting transportation to medical appointments?: No Do you have trouble paying your heating and electricity bill?: No Do you have trouble taking care of your child, family member or friend?: No Do you have trouble with day-to-day activities such as bathing, preparing meals, shopping, managing finances, etc.?: No Are you currently unemployed and looking for a job?: No Are you interested in more education?: No Please select the resources that you would like help with: None Currently or been in a relationship where the following occur: No concerns reported THRIVE Score: 0 NASH-7 AMB Questionnaire NASH-7 Date NASH - 7 assessed: 07/27/24 Source: Developed by Drs. Jeremi Buenrostro, Cat Benson, Isma Ballard and colleagues, with an educational ted from [employer]. Physical exam (Primary Care) Vital Signs: Last Vital Signs Temp 98.2 F 10/05/24 09:57 Pulse 69 10/05/24 09:57 BP 108/72 10/05/24 09:57 Pulse Ox 96 10/05/24 09:57 Oxygen Delivery Method Room Air 10/05/24 09:57 BMI result Body Mass Index 26.0 Tobacco/Smoking Status: Tobacco use Status Tobacco use date assessed 10/05/24 10/05/24 09:57 Patient Tobacco Use Status Never used Tobacco 10/05/24 09:56 e-Cigarette/Vaping Use Never Used 10/05/24 09:56 Thrive Assessment: Date of Thrive Assessment Date Thrive assessed 05/11/24 10/05/24 09:52 Currently or been in a relationship where the following occur: No concerns reported Coding Level of Care Code Est Pt Level 3 (13741) Complex EM visit Add On G2211 Diagnoses Obesity, class 1 E66.811 Assessment & Plan Assessment & Plan (1) Obesity, class 1: Code(s): E66.811 - Obesity, class 1 Category: Medical Plan Increase phentermine to 30 mg daily. Side effects reviewed. Continue lifestyle modifications. Recheck 1 month. Medications: New phentermine administer before breakfast or 1-2 hours after breakfast 30 mg PO DAILY 30 caps 0RF
[2024-10-05 09:57] VITALS: BP 108/72; PULSE 69; TEMP 36.8; O2SAT 96; BMI 26.0
== END 2024-10-05 10:25 | disposition home or self-care (01) ==
LOC: HO.HMCFM 09:45
PROVIDERS: PCP Physician Assistant Medical; Visit Provider Physician Assistant Medical
DX: E66.811 Obesity, class 1 (principal); Z68.26 Body mass index [BMI] 26.0-26.9, adult

== ENCOUNTER 2024-10-30 08:42 | Outpatient (AMB) | payer OTHER, SELFPAY ==
--- NOTE | 2024-10-30 09:10 | A.OFFPC_ITS ---
Vital Signs 10/30/24 09:13 Height 5 ft 6 in Weight 154 lb 6 oz BMI 24.9 BP 110/62 Blood Pressure Location Rt brachial Position Sitting Pulse 70 Pulse Source Pulse Oximeter Temp 97.9 F Temp Source Temporal Artery Scan Pulse Oximetry (%) 98 Oxygen Delivery Method Room Air Intake Visit Reasons: med check Intake Note: Muara presents in the office today for a medication check. Allergies tirzepatide (From Zepbound) Allergy (Intermediate, Verified 10/30/24 09:11) Rash Medication List - Last Reconciled 10/30/24 by VERÓNICA Weller [vitamin d w zinc,seleium , copper PO] chromium picolinate 1,000 mcg PO DAILY Lactobacillus acidophilus (Probiotic Acidophilus) 500 mmu cells PO TID magnesium 250 mg PO DAILY phentermine 30 mg PO DAILY vitamin B complex ER (Complex B-100 tablet,extended release) 1 tab PO DAILY Tobacco use date assessed: 10/30/24 Dental Screening Dental Screen Date: 10/30/24 Did you have a dental visit in the last 12 months?: Yes Did you have a dental problem in the last 6 months where you did not have access to dental care?: No Was dental information given to patient?: Patient has dentist HPI HPI Comments History of Present Illness Details This is a 54-year-old female who presents for a medication check. She increase phentermine to 30 mg a month ago. She denies side effects. She is very motivated to lose weight, and she is exercising and following a healthy diet. Previous allergic reaction to GLP 1. She has lost 12 lb since starting the medicine. She denies side effects to the medicine. We discussed today that she has struggled with focus her entire life, and she thinks that she has always had ADD. When she gets overwhelmed it makes her feel depressed and eat. She has never been formally diagnosed, but she is really concerned about discontinuing phentermine. ROS: Constitutional: No unexplained weight loss, fever, chills, fatigue or night sweats. Respiratory: No shortness of breath Cardiovascular: No chest pain, chest pressure or chest discomfort. No palpitations or pedal edema. Physical exam: Constitutional: Alert, in no distress. Neck: Supple, Full range of motion. No lymphadenopathy. No palpable thyroid masses. Respiratory: Clear to auscultation. Cardiovascular: S1 S2 regular. No murmurs Extremities: Warm and well perfused. No clubbing, cyanosis or edema. Psychiatric: Normal mood and affect [facility] Medical History (Updated 09/14/24 @ 11:51 by VERÓNICA Weller) Drug reaction Hypertension Obesity, class 1 Urinary frequency Bilateral plantar fasciitis Obesity, class 2 Hyperlipidemia Chest tightness Surgical History H/O wisdom tooth extraction Family History Mother Family history of CLL (chronic lymphoid leukemia) Social History (Updated 10/30/24 @ 09:13 by Missy Cruz MA) Housing: House Alcohol intake: current Comment: socially Patient Tobacco Use Status: Never used Tobacco e-Cigarette/Vaping Use: Never Used Second Hand Smoke Exposure: No Substance Use Type: Marijuana service: No Current occupational status: employed Current occupation: Realtor Current occupational exposures/hazards: No Cognitive needs: No Hearing needs: No Vision needs: No Questionnaire Thrive Questionnaire Date Thrive assessed: 05/11/24 I am a: Patient What is your living situation today?: I have a steady place to live Within the past 12 months, did the food you bought not last and you didn't have the money to get more?: Never true Within the past 12 months, did you worry whether your food would run out before you got money to buy more?: Never true Do you have trouble paying for medicines?: No Do you have trouble getting transportation to medical appointments?: No Do you have trouble paying your heating and electricity bill?: No Do you have trouble taking care of your child, family member or friend?: No Do you have trouble with day-to-day activities such as bathing, preparing meals, shopping, managing finances, etc.?: No Are you currently unemployed and looking for a job?: No Are you interested in more education?: No Please select the resources that you would like help with: None Currently or been in a relationship where the following occur: No concerns reported THRIVE Score: 0 NASH-7 AMB Questionnaire NASH-7 Date NASH - 7 assessed: 07/27/24 Source: Developed by Drs. Jeremi Buenrostro, Cat B.Isma Miller and colleagues, with an educational ted from [employer]. Physical exam (Primary Care) Vital Signs: Last Vital Signs Temp 97.9 F 10/30/24 09:13 Pulse 70 10/30/24 09:13 BP 110/62 10/30/24 09:13 Pulse Ox 98 10/30/24 09:13 Oxygen Delivery Method Room Air 10/30/24 09:13 BMI result Body Mass Index 24.9 Tobacco/Smoking Status: Tobacco use Status Tobacco use date assessed 10/30/24 10/30/24 09:17 Patient Tobacco Use Status Never used Tobacco 10/30/24 09:17 e-Cigarette/Vaping Use Never Used 10/30/24 09:17 Thrive Assessment: Date of Thrive Assessment Date Thrive assessed 05/11/24 10/30/24 09:17 Currently or been in a relationship where the following occur: No concerns reported Coding Level of Care Code Est Pt Level 3 (11609) Complex EM visit Add On G2211 Diagnoses Obesity, class 1 E66.811 Assessment & Plan Assessment & Plan (1) Obesity, class 1: Code(s): E66.811 - Obesity, class 1 Category: Medical Plan Continue phentermine to 30 mg daily. Side effects reviewed. Continue lifestyle modifications. Plan to discontinue medication after 12 weeks on this dosage. Patient has possibly underlying attention deficit disorder. She she has struggled with focus her entire life which has caused depressive symptoms and overeating. Defers referral to Psychiatry at this time. We discussed trial of bupropion which is used off-label for adults with ADHD and isn't antidepressant. She would like to consider this once she is off phentermine. Follow up in 8 weeks. Medications: Refilled phentermine administer before breakfast or 1-2 hours after breakfast 30 mg PO DAILY 30 caps 1RF
[2024-10-30 09:13] VITALS: BP 110/62; PULSE 70; TEMP 36.6; O2SAT 98; BMI 24.9
== END 2024-10-30 09:40 | disposition home or self-care (01) ==
LOC: HO.HMCFM 08:43
PROVIDERS: PCP Physician Assistant Medical; Visit Provider Physician Assistant Medical
DX: E66.811 Obesity, class 1 (principal); Z68.24 Body mass index [BMI] 24.0-24.9, adult

== ENCOUNTER 2025-01-01 09:31 | Outpatient (AMB) | payer OTHER, SELFPAY ==
--- NOTE | 2025-01-01 09:46 | A.OFFPC_ITS ---
Vital Signs 01/01/25 09:49 Height 5 ft 6 in Weight 142 lb 6 oz BMI 23.0 BP 108/68 Blood Pressure Location Rt brachial Position Sitting Pulse 65 Pulse Source Pulse Oximeter Temp 97.5 F Temp Source Temporal Artery Scan Oxygen Delivery Method Room Air Intake Visit Reasons: med check Intake Note: Maura presents in the office today for a medication check in. Allergies tirzepatide (From Zepbound) Allergy (Intermediate, Verified 01/01/25 09:48) Rash Medication List - Last Reconciled 01/01/25 by VERÓNICA Weller [vitamin d w zinc,seleium , copper PO] bupropion HCl XL (Wellbutrin XL) 150 mg PO QAM chromium picolinate 1,000 mcg PO DAILY Lactobacillus acidophilus (Probiotic Acidophilus) 500 mmu cells PO TID magnesium 250 mg PO DAILY vitamin B complex ER (Complex B-100 tablet,extended release) 1 tab PO DAILY Tobacco use date assessed: 01/01/25 Dental Screening Dental Screen Date: 01/01/25 Did you have a dental visit in the last 12 months?: Yes Did you have a dental problem in the last 6 months where you did not have access to dental care?: No Was dental information given to patient?: Patient has dentist HPI HPI Comments History of Present Illness Details This is a 54-year-old female who presents for a medication check. She was initially treated with Zepbound, but she developed a severe rash. She switched to phentermine, and she is taking 30 mg daily. She denies side effects. She has been following a healthy diet and exercising regularly. Her BMI is 23.0 today. She lost 58 lb. She feels very motivated to continue lifestyle modifications. She has a few days left of a prescription of phentermine. She is worried about stopping it, and we reviewed the risks of longer term use including pulmonary hypertension and valve disorders. We had a discussion at her last visit about her lifelong difficulty with focus, and she suspects that she has always had ADHD. When she gets overwhelmed it makes her feel depressed and overeat. She was never formally diagnosed. ROS: Constitutional: No unexplained weight loss, fever, chills, fatigue or night sweats. Respiratory: No shortness of breath Cardiovascular: No chest pain, chest pressure or chest discomfort. No palpitations or pedal edema. Physical exam: Constitutional: Alert, in no distress. Psychiatric: Normal mood and affect [facility] Medical History (Updated 01/01/25 @ 10:20 by VERÓNICA Weller) Concentration deficit Drug reaction Hypertension Obesity, class 1 Urinary frequency Bilateral plantar fasciitis Obesity, class 2 Hyperlipidemia Chest tightness Surgical History H/O wisdom tooth extraction Family History Mother Family history of CLL (chronic lymphoid leukemia) Social History (Updated 01/01/25 @ 09:47 by Missy Cruz CMA) Housing: House Alcohol intake: current Comment: socially Patient Tobacco Use Status: Never used Tobacco e-Cigarette/Vaping Use: Never Used Second Hand Smoke Exposure: No Substance Use Type: Marijuana service: No Current occupational status: employed Current occupation: Realtor Current occupational exposures/hazards: No Cognitive needs: No Hearing needs: No Vision needs: No Questionnaire Thrive Questionnaire Date Thrive assessed: 05/11/24 I am a: Patient What is your living situation today?: I have a steady place to live Within the past 12 months, did the food you bought not last and you didn't have the money to get more?: Never true Within the past 12 months, did you worry whether your food would run out before you got money to buy more?: Never true Do you have trouble paying for medicines?: No Do you have trouble getting transportation to medical appointments?: No Do you have trouble paying your heating and electricity bill?: No Do you have trouble taking care of your child, family member or friend?: No Do you have trouble with day-to-day activities such as bathing, preparing meals, shopping, managing finances, etc.?: No Are you currently unemployed and looking for a job?: No Are you interested in more education?: No Please select the resources that you would like help with: None Currently or been in a relationship where the following occur: No concerns reported THRIVE Score: 0 NASH-7 AMB Questionnaire NASH-7 Date NASH - 7 assessed: 07/27/24 Source: Developed by Drs. Jeremi Buenrostro, Cat Benson, Isma Ballard and colleagues, with an educational ted from [employer]. Physical exam (Primary Care) Vital Signs: Last Vital Signs Temp 97.5 F 01/01/25 09:49 Pulse 65 01/01/25 09:49 BP 108/68 01/01/25 09:49 Oxygen Delivery Method Room Air 01/01/25 09:49 BMI result Body Mass Index 23.0 Tobacco/Smoking Status: Tobacco use Status Tobacco use date assessed 01/01/25 01/01/25 09:48 Patient Tobacco Use Status Never used Tobacco 01/01/25 09:48 e-Cigarette/Vaping Use Never Used 01/01/25 09:48 Thrive Assessment: Date of Thrive Assessment Date Thrive assessed 05/11/24 01/01/25 09:48 Currently or been in a relationship where the following occur: No concerns reported Coding Level of Care Code Est Pt Level 3 (44917) Complex EM visit Add On G2211 Diagnoses Obesity, class 1 E66.811 Concentration deficit R41.840 Assessment & Plan Assessment & Plan (1) Obesity, class 1: Code(s): E66.811 - Obesity, class 1 Category: Medical (2) Concentration deficit: Code(s): R41.840 - Attention and concentration deficit Category: Medical Plan Patient will complete her course of phentermine this week. Patient possibly has underlying attention deficit disorder and a component of depression She she has struggled with focus her entire life which has caused depressive symptoms and overeating. Defers referral to Psychiatry at this time. We discussed trial of bupropion which is used off-label for adults with ADHD and may reduce cravings. She would like to try this. Denies history of seizures. Reviewed black box warning. She will start it when she stops phentermine. Follow up in 1 month. Medications: New bupropion HCl XL (Wellbutrin XL) 150 mg PO QAM 30 tabs 0RF Discontinued phentermine administer before breakfast or 1-2 hours after breakfast Discontinued Reason: Doctor's Order 30 mg PO DAILY 30 caps 1RF
[2025-01-01 09:49] VITALS: BP 108/68; PULSE 65; TEMP 36.4; BMI 23.0
== END 2025-01-01 10:18 | disposition home or self-care (01) ==
LOC: HO.HMCFM 09:32
PROVIDERS: PCP Physician Assistant Medical; Visit Provider Physician Assistant Medical
DX: R41.840 Attention and concentration deficit (principal); E66.811 Obesity, class 1; Z68.23 Body mass index [BMI] 23.0-23.9, adult

== ENCOUNTER 2025-02-15 13:01 | Outpatient (AMB) | payer OTHER, SELFPAY ==
--- NOTE | 2025-02-15 12:57 | A.OFFPC_ITS ---
Intake Visit Reasons: telehealth med check Intake Note: Maura presents via telephone for a medication check in. Allergies tirzepatide (From Zepbound) Allergy (Intermediate, Verified 02/15/25 12:59) Rash Medication List - Last Reconciled 02/15/25 by VERÓNICA Weller [vitamin d w zinc,seleium , copper PO] bupropion HCl XL 300 mg PO QAM chromium picolinate 1,000 mcg PO DAILY Lactobacillus acidophilus (Probiotic Acidophilus) 500 mmu cells PO TID magnesium 250 mg PO DAILY vitamin B complex ER (Complex B-100 tablet,extended release) 1 tab PO DAILY Tobacco use date assessed: 02/15/25 Dental Screening Dental Screen Date: 02/15/25 Did you have a dental visit in the last 12 months?: Yes Did you have a dental problem in the last 6 months where you did not have access to dental care?: No Was dental information given to patient?: Patient has dentist HPI HPI Comments History of Present Illness Details This is a 54-year-old female who presents for a medication check. She was initially treated with Zepbound, but she developed a severe rash. She completed a 12 week course of phentermine. She did not have side effects. After she got back from her cruise her weight was down to 138 lb, but today she is 145 lb. She is very concerned about the weight gain. She is exercising twice a day and following a healthy diet, but she notices more food noise and cravings. We had a discussion at her last visit about her lifelong difficulty with focus, and she suspects that she has always had ADHD. When she gets overwhelmed it makes her feel depressed and overeat. She was never formally diagnosed. She started bupropion XL 150 mg. She denies side effects. Her mood is very good on the medication. She denies depression or anxiety. She feels very regulated. She is still having food cravings and food noise. ROS: Constitutional: No unexplained weight loss, fever, chills, fatigue or night sweats. Respiratory: No shortness of breath Cardiovascular: No chest pain, chest pressure or chest discomfort. No palpitations or pedal edema. [facility] Medical History (Updated 01/01/25 @ 10:20 by VERÓNICA Weller) Concentration deficit Drug reaction Hypertension Obesity, class 1 Urinary frequency Bilateral plantar fasciitis Obesity, class 2 Hyperlipidemia Chest tightness Surgical History H/O wisdom tooth extraction Family History Mother Family history of CLL (chronic lymphoid leukemia) Social History (Updated 02/15/25 @ 13:00 by Missy Cruz CMA) Housing: House Alcohol intake: current Comment: socially Patient Tobacco Use Status: Never used Tobacco e-Cigarette/Vaping Use: Never Used Second Hand Smoke Exposure: No Use of substances other than those prescribed or required for medical reasons: Yes Substance Use Type: Marijuana service: No Current occupational status: employed Current occupation: Realtor Current occupational exposures/hazards: No Cognitive needs: No Hearing needs: No Vision needs: No Questionnaire Thrive Questionnaire Date Thrive assessed: 05/11/24 I am a: Patient What is your living situation today?: I have a steady place to live Within the past 12 months, did the food you bought not last and you didn't have the money to get more?: Never true Within the past 12 months, did you worry whether your food would run out before you got money to buy more?: Never true Do you have trouble paying for medicines?: No Do you have trouble getting transportation to medical appointments?: No Do you have trouble paying your heating and electricity bill?: No Do you have trouble taking care of your child, family member or friend?: No Do you have trouble with day-to-day activities such as bathing, preparing meals, shopping, managing finances, etc.?: No Are you currently unemployed and looking for a job?: No Are you interested in more education?: No Please select the resources that you would like help with: None Currently or been in a relationship where the following occur: No concerns reported THRIVE Score: 0 NASH-7 AMB Questionnaire NASH-7 Date NASH - 7 assessed: 07/27/24 Source: Developed by Drs. Jeremi Buenrostro, Cat Benson, Isma Ballard and colleagues, with an educational ted from [employer]. Physical exam (Primary Care) Tobacco/Smoking Status: Tobacco use Status Tobacco use date assessed 02/15/25 02/15/25 13:00 Patient Tobacco Use Status Never used Tobacco 02/15/25 13:00 e-Cigarette/Vaping Use Never Used 02/15/25 13:00 Thrive Assessment: Date of Thrive Assessment Date Thrive assessed 05/11/24 02/15/25 12:57 Currently or been in a relationship where the following occur: No concerns reported Telehealth Telehealth Telehealth Platform: Telephone Location of provider rendering services: practice address Location of patient: address on file Patient Identification confirmed using: Name, : Yes Telehealth method: voice only Patient verbally consented to treatment: Yes Patient verbally consented to billing insurance company: Yes Patient informed of any privacy concerns related to visit: Yes Minutes spent on Phone/Video with Pt.: 10 Coding Level of Care Code Tele Est Pt Level 3 (30273) Complex EM visit Add On G2211 Diagnoses Obesity, class 1 E66.811 Concentration deficit R41.840 Assessment & Plan Assessment & Plan (1) Obesity, class 1: Code(s): E66.811 - Obesity, class 1 Category: Medical (2) Concentration deficit: Code(s): R41.840 - Attention and concentration deficit Category: Medical Plan Patient possibly has underlying attention deficit disorder and a component of depression She she has struggled with focus her entire life which has caused depressive symptoms and overeating. She deferred referral to Psychiatry at this time. Wellbutrin is helping to regulate her mood and focus. We discussed using this medication initially since it is used off-label for adults with ADHD and may reduce food cravings. She will try increasing the dose to 300 mg daily. Reviewed black box warning. Declined follow up, but she will message me over the patient portal in a few weeks to let me know how she is doing. Medications: New bupropion HCl XL 300 mg PO QAM 90 tabs 1RF Discontinued bupropion HCl XL Discontinued Reason: Doctor's Order 150 mg PO QAM 90 tabs 1RF
== END 2025-02-15 13:52 | disposition home or self-care (01) ==
LOC: HO.HMCFM 13:01
PROVIDERS: PCP Physician Assistant Medical; Visit Provider Physician Assistant Medical
DX: E66.811 Obesity, class 1 (principal); R41.840 Attention and concentration deficit